=== PATIENT | female | born 1980 | race Asian ===

== ENCOUNTER → 2024-04-22 13:11 | Outpatient (REF) | payer BC, SELFPAY | LOC: WDC 13:11 | PROVIDERS: ATTENDING PHYSICIAN Obstetrics & Gynecology; FAMILY PHYSICIAN Family Medicine | DX: Z12.31 Encounter for screening mammogram for malignant neoplasm of breast (principal) | CPT/HCPCS: 77063; 77067 ==

== ENCOUNTER → 2025-01-29 14:07 | Outpatient (REF) | payer BC, SELFPAY | LOC: RAD 14:07 | PROVIDERS: FAMILY PHYSICIAN Internal Medicine | DX: R10.12 Left upper quadrant pain (principal) | CPT/HCPCS: 74177; Q9967 ==

== ENCOUNTER → 2025-04-28 13:42 | Outpatient (REF) | payer BC, SELFPAY | LOC: WDC 13:42 | PROVIDERS: ATTENDING PHYSICIAN Student in an Organized Health Care Education/Training Program | DX: Z12.31 Encounter for screening mammogram for malignant neoplasm of breast (principal) | CPT/HCPCS: 77063; 77067 ==

== ENCOUNTER → 2025-06-19 11:34 | Outpatient (REF) | payer BC, SELFPAY | LOC: RCS 11:34 | PROVIDERS: ATTENDING PHYSICIAN Internal Medicine Cardiovascular Disease | DX: R06.09 Other forms of dyspnea (principal) | CPT/HCPCS: 93017 ==